=== PATIENT | female | born 1960 | race Two or more races ===

== ENCOUNTER 2025-10-08 06:30 | Day surgery (SDC) | payer BC, SELFPAY ==
--- NOTE | 2025-10-02 08:17 | ESHP_ITS ---
RE: DANISH CABALLERO : 1960 DATE OF ADMISSION: 10/08/2025 DATE OF SURGERY: 10/08/2025 HISTORY OF PRESENT ILLNESS: This is a 65-year-old with cervical dysplasia who presents for LEEP cone biopsy. MEDICATIONS: Lisinopril 20 mg 1 p.o. daily. PAST MEDICAL HISTORY: Hypertension. PAST SURGICAL HISTORY: delivery 1988 and 1999. FAMILY HISTORY: Denies. REVIEW OF SYSTEMS: She denies any chest pain, palpitations, cough, fever, flank pain, shortness of breath, or lower extremity pain. PHYSICAL EXAMINATION: VITAL SIGNS: Blood pressure is 138/82. Heart rate 88. Respirations 18. Temperature is 98.6. HEENT: Oropharynx and sclerae are clear. LUNGS: Clear to auscultation bilaterally. HEART: Regular rate rhythm. ABDOMEN: Old Pfannenstiel scar noted. EXTREMITIES: Nontender. SKIN: No gross rashes or lesions. NEUROLOGIC: No focal deficit. ASSESSMENT: Cervical dysplasia. PLAN: LEEP cone biopsy cervix. Informed consent was obtained. The patient made aware of the risks, complications, alternatives, and benefits of the proposed procedure, and she agrees. DT: 07:35:36 TT: 08:16:00 Ref: [id number] - TID: [id number] MTDD
--- NOTE | 2025-10-07 07:00 | EKG_ITS ---
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
[2025-10-07 09:30] VITALS: BMI 29.3
[2025-10-07 10:26] LABS: Basophils # (Auto) 0.1 Thou/mm3 (0.0-0.2); Basophils % (Auto) 1 % (0-2.5); Eosinophils # (Auto) 0.2 Thou/mm3 (0.0-0.5); Eosinophils % (Auto) 2 % (0-10); Hematocrit 39.0 % (36.0-46.0); Hemoglobin 13.4 g/dL (12.0-16.0); Immature Granulocytes Auto 0.02 Thou/mm3 (0.00-0.00); Lymphocytes # (Auto) 4.5 Thou/mm3 (1.0-4.8); Lymphocytes % (Auto) 49 % (10-50); Mean Corpuscular HGB Conc 34.4 g/dl (31.0-37.0); Mean Corpuscular Hemoglobin 31.6 pg (25.0-35.0); Mean Corpuscular Volume 92 fL (80-100); Monocytes # (Auto) 0.9 Thou/mm3 (0.0-0.8); Monocytes % (Auto) 9 % (0-12); Neutrophils # (Auto) 3.6 Thou/mm3 (1.8-7.7); Neutrophils % (Auto) 39 % (37-80); Nucleated Red Blood Cell # 0.00 Thou/mm3 (0.00-0.00); Nucleated Red Blood Cell % 0 /100 WBC (0); Platelet Count 325 Thou/mm3 (140-440); RDW Standard Deviation 39.7 fL (36.4-46.3); Red Blood Count 4.24 Miln/mm3 (4.00-5.20); White Blood Count 9.2 Thou/mm3 (3.6-11.0)
[2025-10-07 10:51] LABS: Alanine Aminotransferase 13 U/L (10-49); Albumin, Serum 4.8 gm/dL (3.4-4.8); Albumin/Globulin Ratio 1.7 (1.2-2.2); Alkaline Phosphatase 79 U/L (46-116); Anion Gap 13 (7-16); Aspartate Amino Transferase 17 U/L (0-34); BUN/Creatinine Ratio 18 Ratio (12-20); Bilirubin,Total 0.4 mg/dL (0.3-1.2); Blood Urea Nitrogen 11 mg/dL (9-23); Calcium 9.7 mg/dL (8.3-10.6); Calcium (Corrected) 9.7 mg/dL (8.5-10.1); Carbon Dioxide 26.2 mMol/L (20.0-31.0); Chloride 100 mMol/L (98-107); Creatinine (Component) 0.6 mg/dL (0.6-1.3); Estimated Creatinine Clearance 79.2 mL/min (>60); Globulin 2.8 gm/dL (2.3-3.5); Glucose 111 mg/dL (74-106); Osmolality,Calculated 277 (275-295); Potassium 3.8 mMol/L (3.4-5.1); Sodium 139 mMol/L (136-145); Total Protein 7.6 gm/dL (5.7-8.2); eGFR > 60 See Note
[2025-10-07 10:52] LABS: INR 1.0 (0.9-1.3); Partial Thromboplastin Time 26.0 Seconds (22.0-36.0); Prothrombin Time 10.6 Seconds (9.0-12.2)
[2025-10-08] VITALS (7 sets, daily range): BP systolic 129–151; BP diastolic 72–101; PULSE 94–109; RESP 16–20; TEMP 36.3–36.8; O2SAT 97–100; BMI 29.2
--- NOTE | 2025-10-08 07:23 | CHAP ---
Prayed with patient before procedure.
--- NOTE | 2025-10-08 09:20 | SUR.PHASEI ---
0942 patient arrived to recovery resting comfortably in [facility], on oxygen 8L via oxy mask, drowsy and responding to verbal prompting, breathing unlabored, vital signs stable, denies pain and nausea, dressing intact to vaginal area; peripad, no bleeding noted, report received from Fran CHILD and Brianne JOHNSON
--- NOTE | 2025-10-08 09:21 | ESOP_ITS ---
Operative Note - [facility] ADMINISTRATOR Procedure Date of procedure: 10/08/25 Procedure Performed: LEEP Cone Biopsy Cervix Indication: Cervical dysplasia on endocervical curettings in Office Pre-Op diagnosis: Cervical dysplasia on endocervical curettings in Office Post-Op diagnosis: Cervical dysplasia on endocervical curettings in Office Anesthesia type: General Procedure description: After proper informed consent was obtained and the patient was made aware of the risks, complications, alternatives and benefits of the proposed procedure she was taken to the operating room where she underwent induction of general anesthesia.? She was placed in the dorsal lithotomy position.? A red rubber catheter was placed and the bladder drained of all its contents.? She was prepped and draped in the usual sterile fashion.? A timeout was performed.? A bivalve insulated speculum was placed in the vagina.? The cervix was painted with Lugol's solution.? The cervix was circumferentially injected with a 10 cc solution of dilute vasopressin (20 units and 100 cc of injectable saline).? Using the 1.5 x 1.5 cm loop electrode the squamocolumnar junction was excised. A 1.0 x 1.0 loop electrode was utilized to obtain a Top-Hat specimen of the Endo cervix.? Using a Kevorkian curette the endocervical canal was curetted and specimen placed on Telfa.? All 3 specimens sent to pathology. ?Hemostasis was achieved with the Bovie cautery and application of Monsel solution.? All instruments were removed from the vagina.? Counts were correct.? She was reversed from general anesthesia in the supine position.? She was transferred to the recovery room in stable condition.? I discussed with the patient's amd daughter the nature of her condition, the intraoperative findings, the expectation for recovery, all questions answered . Specimen: other (1. LEEP specimen 2. Top Hat Specimen 3. Endocervical curettings. ) Estimated blood loss (ml): 5 Findings: Atrophic appearing cervix Uterine prolapse 2nd degree Cystocele 3rd degree Rectocele 2nd degree Complications: none Surgical staff Dr Operation Date: 10/08/25 08:45 <No data on this case meets the specified criteria> Fran Holden, Surgeon Diagnosis Discharge Diagnosis (1) Dysplasia, cervix uteri: Status: Acute Problem List Completed Was Problem List Reviewed/Reconciled?: Yes
--- NOTE | 2025-10-08 10:17 | SUR.PHASEII ---
1017 Patient meets discharge criteria from recovery, awake and alert, breathing unlabored, vital signs stable, denies pain- states, just cramping that come and goes , dressing intact; no bleeding noted, drinking water; denies nausea, patient assisted with dressing into her clothing by her daughter, discharge instructions given to patient, her daughter and her with the assistance of the telephone viner operator Barbra, patients daughter signed discharge instructions. Patient given all her belongings prior to discharge, transported via wheelchair and left in a private vehicle.
== END 2025-10-08 10:17 | disposition home or self-care (01) ==
PROVIDERS: PCP Physician Assistant; Referring Provider Specialist; Visit Provider Specialist
PROC: 0UBC7ZZ Excision of Cervix, Via Natural or Artificial Opening (ICD-10-PCS; CPT 57522; principal; 2025-10-08 08:30)
DX: D06.9 Carcinoma in situ of cervix, unspecified (principal); Z01.810 Encounter for preprocedural cardiovascular examination
CPT/HCPCS: 57522; 36415; 80053; 85025; 85610; 85730; 86850; 86870; 86900; 86901; 93005; A4217; A4649; J0131; J0690; J2250; J2598; J2704; J3010; J3490; A9270